=== PATIENT | male | born 1965 | race Caucasian/White ===

== ENCOUNTER → 2022-01-04 11:29 | Outpatient (BNVA) | payer MEDICARE, OTHER, SELFPAY | PROVIDERS: Visit Provider Family Medicine | DX: R55 Syncope and collapse | CPT/HCPCS: 80053; 85025 ==

== ENCOUNTER 2022-04-17 14:36 | Outpatient (CLI) | payer MEDICARE, OTHER, SELFPAY ==
--- NOTE | 2022-04-17 16:30 | USCV_ITS ---
Ramiro Love Age: 57 Gender: M : 1965 Exam Date: 04/17/2022 15:09 Ordering Phys: Mariela Kong DO Technologist: RENATO [place]am [place] [facility] [place] Indication: PRESYNCOPE Risk Factors: Previous Vascular Surgery: Right Brachial BP: / Left Brachial BP: / Right Left Velocity (cm/s) Spectral Plaque Velocity (cm/s) Spectral Plaque Syst/Diast Broadening Syst/Diast Broadening 88.90/ 20.50 Prox CCA 68.40 / 16.30 72.60/ 19.70 Mid CCA 85.40 / 21.80 88.90/ 28.20 Distal CCA 80.80 / 26.40 85.00/ 29.80 Prox ICA 66.80 / 21.00 67.50/ 25.40 Mid ICA 71.40 / 27.10 75.30/ 31.50 Distal ICA 67.40 / 23.10 79.50 ECA 85.40 0.96 ICA/CCA 0.84 Vertebral 50.00/ 13.80 cm/s 41.00/ 9.80 cm/s Subclavian 105.8 201.5 0 0 FINDINGS Comparison: none available. No significant elevation of systolic or diastolic velocities. Waveforms are normal. No significant amount of calcified plaque or intimal thickening identified. Antegrade vertebral arteries. CONCLUSIONS Normal carotid doppler ultrasound. Dr. Valencia Wilson DO (Electronically Signed) Final Date: 18 April 2022 07:43 S
== END 2022-04-17 14:37 | disposition home or self-care (01) ==
PROVIDERS: PCP Family Medicine; Visit Provider Family Medicine
DX: R55 Syncope and collapse (principal)
CPT/HCPCS: 93880

== ENCOUNTER 2023-06-02 20:00 | Outpatient (CLI) | payer OTHER, MEDICARE, SELFPAY | END 2023-06-02 20:01 | disposition home or self-care (01) | LOC: SLEEP 06-03 05:24 | PROVIDERS: PCP Clinical Nurse Specialist Adult Health; Visit Provider Family Medicine | DX: G47.33 Obstructive sleep apnea (adult) (pediatric) (principal) | CPT/HCPCS: 95811 ==